=== PATIENT | female | born 1995 | race African-American/Black ===

== ENCOUNTER 2021-09-13 13:01 | Emergency (ER) | payer OTHER, SELFPAY ==
--- NOTE | 2021-09-13 13:22 | ED_ITS ---
HPI - Psych General Chief Complaint: Psychiatric Symptoms Stated Complaint: crisis Time Seen by Provider: 09/13/21 13:13 Source: family (Mom radha [phone]) and EMS Mode of arrival: EMS Limitations: no limitations History of Present Illness HPI Narrative: 25 yo female w/ h/o depression, psychotic episodes w/ mutiple admits to psychiatric units not currently compliant with medications here with concern for behavior change. Mom says patient has been wandering, laughing at strange times then aggressive. Seems to be responding to internal stimuli talking out loud to people. Mom wanted her to speak to crisis today. Patient got upset, locked herself in room, very aggressive. Drinking alcohol and smoking cigarettes Patient using to answer any questions. All information was obtained from her mom Radha who she lives with Related Data Home Medications Medication Instructions Recorded Confirmed No Known Home Meds 09/13/21 09/13/21 Allergies Allergy/AdvReac Type Severity Reaction Status Date / Time Unable to Assess Allergy Verified 09/13/21 14:17 Review of Systems Review of Systems: Yes Other (Patient refusing to answer all questions) [facility] Past Medical History Attestation statement: The following information was validated with the patient. Source: obtained from family Social History Social History Advance Directives: No Advance Directives Information Provided: No Physical Exam Vital Signs: Vital Signs: Last Vital Signs Resp 16 09/13/21 13:39 BMI result Body Mass Index 24.4 Const: Other: Quite agitated, restless General: healthy appearing and alert Orientat ion/consciousness: patient oriented x3 Limitations: no limitations HEENT: Head: Yes normal to inspection Ears: hearing grossly normal bilaterally Eyes: General: appearance normal, both eyes and all related structures Neck: Neck: Yes normal visual inspection Chest: Chest palpation & inspection: normal inspection of the chest Resp: Effort & Inspection: normal respiratory effort Auscultation: clear to auscultation bilaterally Cardio: Rate: regular rate Rhythm: regular rhythm Peripheral pulses: Peripheral pulses 2+ throughout Skin: General skin exam: no rashes or lesions noted Neuro: General: patient oriented x3 and moves all extremities Cranial nerves: Yes CN's II-XII intact bilaterally Gait exam (Neuro): Normal gait present Extrem: General: Yes normal to inspection Course Course Course Narrative: 25-year-old female here with behavior change. Patient refusing to answer all questions. HPI, review of systems and physical exam is limited due to patient being uncooperative. I did call and speak to her mother. Patient has longstanding history of underlying depression and ?psychotic episodes ?. She has had multiple admissions to inpatient psych for similar presentation. Patient has been wandering the last few days, seeming to respond to internal stimuli, quite agitated and aggressive at times. Patient placed on a Section 12 Will need a crisis evaluation Will obtain labs, drug screen, COVID screen Reevaluation(s) Reevaluation #1: MOM Radha Waddell [phone] DAD Tirso [phone] [facility] - Psych Medical Records Attestation: I reviewed the patient's medical records. Lab Data Attestation: I reviewed the patient's lab results. Labs: Lab Results 09/13/21 09/13/21 09/13/21 Range/Units 15:38 20:58 20:58 Urine Color YELLOW Urine Appearance CLEAR Urine pH 6.0 (5.0-8.0) Ur Specific [place] >= 1.030 H (1.005-1.025) Urine Protein TRACE (NEG-TRACE) MG/DL Urine Glucose (UA) NEG (NEG) MG/DL Urine Ketones 5 (NEG) MG/DL Urine Blood NEG (NEG) Urine Nitrite NEG (NEG) Ur Leukocyte Esterase TRACE H (NEG) Urine Test NEGATIVE (NEGATIVE) COVID-19 ([facility]) Negative (Negative) COVID-19 Clin Com See Note Discharge Plan Discharge Clinical Impression: Acute psychosis Patient Disposition: Still a Patient Prescriptions: No Action No Known Home Meds 0RF
[2021-09-13 13:39] VITALS: RESP 16; BMI 24.4
--- NOTE | 2021-09-13 15:15 | PC.NURSE ---
PATIENT REFUSED COVID TEST AND URINE TEST ,RN AWARE .
--- NOTE | 2021-09-13 15:28 | PC.NURSE ---
patient asks repeatedly is the doctor coming patient is remnded she was seen by provider and that she is waiting for bhn TO CLEAR HER oh i didnt know you called her
[2021-09-13 16:06] LABS: COVID-19 Test Negative (Negative); IDNOW Serial# 9DB6401D
[2021-09-13 21:09] LABS: Appearance Urine CLEAR; Color Urine YELLOW; Glucose Urine UA NEG (NEG); Leukocyte Esterase Urine TRACE (NEG); Nitrite Urine NEG (NEG); Specific Gravity - Urine >= 1.030 (1.005-1.025); Urine Blood NEG (NEG); Urine Ketones 5 MG/DL (NEG); Urine Protein TRACE MG/DL (NEG-TRACE)
[2021-09-13 21:13] LABS: UPreg QC Valid YES; Urine Pregnancy NEGATIVE (NEGATIVE)
[2021-09-13 21:25] LABS: Bacteria Urine 3+ /LPF; Calcium Oxalate Crystals Urine 2+ /LPF; Mucus Urine 2+ /LPF; Squamous Epithelial Cell Urine 2+ /LPF
[2021-09-13 21:31] LABS: Amphetamine Screen Urine Not Detected (Not Detect); Barbiturates, Urine Not Detected (Not Detect); Benzodiazepines Screen Urine Not Detected (Not Detect); Cannabinoid Screen Urine POSITIVE (Not Detect); Cocaine Screen Urine Not Detected (Not Detect); Fentanyl, urine Not Detected (Not Detect); Opiate Screen Urine Not Detected (Not Detect); Phencyclidine Screen Urine Not Detected (Not Detect)
[2021-09-14 02:34] VITALS: BP 128/89; PULSE 70; RESP 16; O2SAT 100
--- NOTE | 2021-09-14 06:42 | PC.NURSE ---
Patient slept through the night, no distress observed/reported, currently not on any medication, awaiting [facility] evaluation in the morning, behavior non concerning, VSS, will continue to monitor.
--- NOTE | 2021-09-14 07:22 | PC.NURSE ---
patient appears to remain asleep at present respirations are even and unlabored patient appears in no distress
[2021-09-14 09:39] VITALS: BP 119/80; PULSE 74; RESP 17; TEMP 36.7; O2SAT 98
--- NOTE | 2021-09-14 12:39 | PM.PSYCN ---
History of Present Illness Date of Service: 09/14/21 Chief Complaint: crisis Reason for Consult: assess for medication management Sources of Information: patient interviewed, chart reviewed and crisis/core team assessment reviewed HPI Narrative: Pt is a 25 yo female w/ h/o depression, and reportedly psychotic episodes w/ mutiple admits to psychiatric units not currently taking any medications who self-presented after argument with her mother. Pt is difficult to engage. She says she had an arguement with her mom, there was some pushing but it's since been resolved. Patient says she came to ED to talk to someone and see if she can set up with outpt therapist/Psychiatrist. She denies AVH, depression or SI/HI. Pt said she used to be on medications about a year ago which helped with mood a little but that she stopped taking them. She could not explain why she stopped taking them. She says she does not feel she needs them and does not want any. She is wanting to get discharged home. Staff in ED says pt has been internally pre-occupied on unit and somewhat disorganized. Report from mom is that patient has been wandering, laughing at strange times then aggressive. Seems to be responding to internal stimuli talking out loud to people. ...got upset, locked herself in room, very aggressive. [facility] evaluating at this time Past Psychiatric History: deferred; pt limited historian Medical Evaluation Reviewed: No (under care of ED provider) Personal & Social History: deferred [facility] Family History: deferred to [facility]; pt difficult to engage Social History: deferred to [facility]; pt difficult to engage Substance History: deferred to [facility]; pt difficult to engage Trauma History: deferred to [facility]; pt difficult to engage Diagnostics Vital Signs (24Hr): Vital Signs - 24 hr 09/13/21 13:39 09/14/21 02:34 09/14/21 09:39 Temperature 98.1 F Pulse Rate 70 74 Respiratory Rate 16 16 17 Blood Pressure 128/89 119/80 Pulse Oximetry 100 98 BMI result Body Mass Index 24.4 Labs Labs: Laboratory Results - last 48 hr 09/13/21 09/13/21 09/13/21 15:38 20:58 20:58 Urine Color YELLOW Urine Appearance CLEAR Urine pH 6.0 Ur Specific [place] >= 1.030 H Urine Protein TRACE Urine Glucose (UA) NEG Urine Ketones 5 Urine Blood NEG Urine Nitrite NEG Ur Leukocyte Esterase TRACE H Urine RBC 1-4 Urine WBC 5-9 H Ur Squamous Epith Cells 2+ Calcium Oxalate Crystal 2+ Urine Bacteria 3+ Urine Mucus 2+ Urine Test NEGATIVE Urine Opiates Screen Urine Fentanyl Screen Ur Barbiturates Screen Ur Phencyclidine Scrn Ur Amphetamines Screen U Benzodiazepines Scrn Urine Cocaine Screen U Marijuana (THC) Screen COVID-19 ([facility]) Negative COVID-19 Clin Com See Note 09/13/21 20:58 Urine Color Urine Appearance Urine pH Ur Specific [place] Urine Protein Urine Glucose (UA) Urine Ketones Urine Blood Urine Nitrite Ur Leukocyte Esterase Urine RBC Urine WBC Ur Squamous Epith Cells Calcium Oxalate Crystal Urine Bacteria Urine Mucus Urine Test Urine Opiates Screen Not Detected Urine Fentanyl Screen Not Detected Ur Barbiturates Screen Not Detected Ur Phencyclidine Scrn Not Detected Ur Amphetamines Screen Not Detected U Benzodiazepines Scrn Not Detected Urine Cocaine Screen Not Detected U Marijuana (THC) Screen POSITIVE H COVID-19 ([facility]) COVID-19 Clin Com Mental Status Exam Mental Status Exam Narrative: Pt is alert and oriented; lying under covers which she puts over her head like a shall; behavior is not uncooperative but with limited answers; patient is not in distress; dressed in casual attire and hospital pants; adequate hygiene; mood is described as good and but affect blunted; eye contact appropriate; Speech is soft spoken; normal rate and prosody and not pressured; no psychomotor agitation/retardation present; thought process is goal directed but distracted; Thought content is on discharge; no psychosis expressed; denies any SI/HI. intermittently internally preoccupied; Patients insight and judgment are impaired. Medications Allergies Allergies Allergy/AdvReac Type Severity Reaction Status Date / Time Unable to Assess Allergy Verified 09/13/21 14:17 Assessment & Plan Assessment & Plan (1) Acute psychosis: Status: Acute Code(s): F23 - Brief psychotic disorder Assessment and Plan: Pt is a 25 yo female w/ h/o depression, and reportedly psychotic episodes w/ mutiple admits to psychiatric units not currently taking any medications who self-presented after argument with her mother. Pt is difficult to engage. She says she had an arguement with her mom, there was some pushing but it's since been resolved. Patient says she came to ED to talk to someone and see if she can set up with outpt therapist/Psychiatrist. She denies AVH, depression or SI/HI. Pt said she used to be on medications about a year ago which helped with mood a little but that she stopped taking them. She could not explain why she stopped taking them. She says she does not feel she needs them and does not want any. She is wanting to get discharged home. Staff in ED says pt has been internally pre-occupied on unit and somewhat disorganized. Report from mom is that patient has been wandering, laughing at strange times then aggressive. Seems to be responding to internal stimuli talking out loud to people. ...got upset, locked herself in room, very aggressive. PLAN: [facility] evaluating at this time pt does not want any medications I spent minutes with the patient and/or on the patient floor today, greater than?50% of which was spent counseling/coordinating care. Patient educated on: diagnosis Informed Consent: does not understand
--- NOTE | 2021-09-14 13:03 | MHC.CARE ---
Per N - Pt disposition is pending collaterals from her mother.
--- NOTE | 2021-09-14 13:40 | PC.NURSE ---
Pt seen this date for individual OT tx. 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 Pt denies feelings of depression and anxiety at this time. Pt presented with several activities and declines all but one one item. She is receptive to small sensory tool fidget widget . Consult with pts nurse and reporting pt has been withdrawn as well as somewhat paranoid at times. Pt states at end of tx All I want to do is what TV .
== END 2021-09-14 15:48 | disposition home or self-care (01) ==
PROVIDERS: Nurse Practitioner Family; Emergency Provider Emergency Medicine
DX: F23 Brief psychotic disorder (principal); R45.6 Violent behavior; R45.1 Restlessness and agitation; F32.A Depression, unspecified; Z20.822 Contact with and (suspected) exposure to COVID-19; F17.200 Nicotine dependence, unspecified, uncomplicated; Z91.14 Patient's other noncompliance with medication regimen
CPT/HCPCS: 80307; 81001; 81025; 87635; 99284